=== PATIENT | female | born 1985 | race Caucasian/White ===

== ENCOUNTER 2020-07-07 17:34 | Outpatient (CLI) | payer OTHER, SELFPAY ==
[2020-07-07 18:47] LABS: SARS Covid-2 Antigen Positive (Negative)
[2020-07-09 11:17] LABS: Coronavirus Lab Test PTC Positive
== END 2020-07-07 17:35 | disposition home or self-care (01) ==
LOC: OPOB 17:35
PROVIDERS: Family Provider Family Medicine; Visit Provider Family Medicine
DX: U07.1 COVID-19 (principal)
CPT/HCPCS: 36415; 87426; 87635

== ENCOUNTER → 2020-11-29 10:03 | Outpatient (BNVA) | payer OTHER, SELFPAY | PROVIDERS: Family Provider Family Medicine; Visit Provider Obstetrics & Gynecology | DX: N93.9 Abnormal uterine and vaginal bleeding, unspecified (principal); Z12.4 Encounter for screening for malignant neoplasm of cervix | CPT/HCPCS: 76830; 84443; 84702; 85025; 88175 ==

== ENCOUNTER → 2020-12-28 08:10 | Outpatient (BNVA) | payer OTHER, SELFPAY | PROVIDERS: Family Provider Family Medicine; Visit Provider Obstetrics & Gynecology | DX: N88.9 Noninflammatory disorder of cervix uteri, unspecified (principal) | CPT/HCPCS: 76830; 81025; 88175; 88305 ==

== ENCOUNTER → 2021-01-24 13:54 | Outpatient (BNVA) | payer OTHER, SELFPAY | PROVIDERS: Family Provider Family Medicine; Visit Provider Obstetrics & Gynecology | DX: N93.9 Abnormal uterine and vaginal bleeding, unspecified (principal); Z30.9 Encounter for contraceptive management, unspecified | CPT/HCPCS: 81025 ==

== ENCOUNTER → 2022-02-27 11:10 | Outpatient (BNVA) | payer OTHER, SELFPAY | PROVIDERS: Family Provider Family Medicine; Visit Provider Nurse Practitioner Family | DX: E66.9 Obesity, unspecified (principal); R73.9 Hyperglycemia, unspecified; E11.9 Type 2 diabetes mellitus without complications; R53.83 Other fatigue; Z13.1 Encounter for screening for diabetes mellitus; E03.9 Hypothyroidism, unspecified; Z13.6 Encounter for screening for cardiovascular disorders | CPT/HCPCS: 80053; 80061; 83036; 83721; 84443; 84481; 85025 ==

== ENCOUNTER 2022-03-05 09:08 | Outpatient (CLI) | payer OTHER, SELFPAY ==
[2022-03-05 10:48] LABS: Free T4 Free Thyroxine 1.13 ng/dL (0.82-1.77)
[2022-03-05 11:45] LABS: Follicle Stimulating Hormone 4.9 mIU/mL; Luteinizing Hormone 14.9 mIU/mL (0.5-41.7)
[2022-03-06 13:22] LABS: Thyroid Peroxidase Antobodies 1 IU/mL (<9)
[2022-03-07 13:23] LABS: Cyclic Citrullinated Peptide <16 UNITS
== END 2022-03-05 09:09 | disposition home or self-care (01) ==
LOC: LAB 09:12
PROVIDERS: Family Provider Family Medicine; Visit Provider Nurse Practitioner Family
DX: R73.9 Hyperglycemia, unspecified (principal); E07.9 Disorder of thyroid, unspecified; K75.81 Nonalcoholic steatohepatitis (NASH)
CPT/HCPCS: 83001; 83002; 84146; 84439; 86200; 86376

== ENCOUNTER → 2022-03-28 09:50 | Outpatient (BNVA) | payer OTHER, SELFPAY | PROVIDERS: Family Provider Family Medicine; Visit Provider Nurse Practitioner Family | DX: E66.9 Obesity, unspecified (principal); R74.8 Abnormal levels of other serum enzymes; E07.9 Disorder of thyroid, unspecified; E11.9 Type 2 diabetes mellitus without complications | CPT/HCPCS: 80053; 84443; 84681 ==

== ENCOUNTER 2022-04-18 07:49 | Outpatient (CLI) | payer OTHER, SELFPAY ==
--- NOTE | 2022-04-18 08:00 | US_ITS ---
WS: [id number] RIGHT UPPER QUADRANT ULTRASOUND HISTORY: Elevated liver enzymes COMPARISON: None available. Liver: 19.7 cm in length. Moderately enlarged liver. Mild coarse echotexture. No mass or bile duct di latation. Portal Vein: Normal hepatopetal flow with monophasic waveform. Gallbladder: Prior cholecystectomy. CBD: 0.9 cm Pancreas: Normal size and echogenicity. Right kidney: 9.6 cm in length. Normal size and echogenicity. No hydronephrosis or mass. Aorta and IVC: Unremarkable abdominal aorta and IVC. No ascites. US/US liver [id number] IMPRESSION: 1. Prior cholecystectomy. 2. Very mild common bile duct dilatation. May be physiologic on the basis of t he cholecystectomy. If further evaluation is necessary due to elevated liver en zymes, similar follow-up MRCP.
--- NOTE | 2022-04-18 08:45 | US_ITS ---
WS: [id number] THYROID ULTRASOUND (TI-RADS CRITERIA) History: Low TSH.. Technique: Ultrasound examination of the thyroid and adjacent soft tissues is performed. FINDINGS: Right lobe: 1.0 cm x 1.0 cm x 3.4 cm. Volume: 1.8 cm3. Small heterogeneous gland. Hypoechoic nodule in the mid gland. Please see further details below. Lymph nodes: None. NODULE: 1 Size: 0.7 x 1.0 x 1.3 cm. Location: Mid Composition: Solid/almost completely solid (2) Echogenicity: Hypoechoic (2) Shape: Not taller than wide (0) Margins: Smooth (0) Echogenic foci: None (0) ACR TI-RADS total points: 4 A Left lobe: 1.5 cm x 1.4 cm x 5.4 cm. Volume: 5.4 cm3. Normal size gland. Hypoechoic nodule with increased vascularity in the mid thyroid. Please see furthe r details below. Lymph nodes: None. NODULE: 2 Size: 1.6 x 1.6 x 2.8 cm. Location: Mid Composition: Solid/almost completely solid (2) Echogenicity: Hypoechoic (2) Shape: Not taller than wide (0) Margins: Smooth (0) Echogenic foci: Macrocalcifications (1) ACR TI-RADS total points: 5 ACR TI-RADS risk category: TR1 Isthmus: 0.1 cm. US/US thyroid [id number] Impression: 1. TR4 Recommendation: Fine needle aspiration LEFT thyroid nodule. Due to its size and appearance ultrasound-guided FNA should be attempted. This is a very vascular nodule and the patient will be risk for bleeding. There is an additional nodule in the RIGHT thyroid for which follow-up is recom mended in one year.
== END 2022-04-18 07:50 | disposition home or self-care (01) ==
LOC: RAD 07:49
PROVIDERS: Family Provider Family Medicine; Visit Provider Nurse Practitioner Family
DX: K75.81 Nonalcoholic steatohepatitis (NASH) (principal); R74.8 Abnormal levels of other serum enzymes; E04.1 Nontoxic single thyroid nodule; K83.8 Other specified diseases of biliary tract; Z90.49 Acquired absence of other specified parts of digestive tract
CPT/HCPCS: 76536; 76705

== ENCOUNTER 2022-05-27 12:45 | Outpatient (CLI) | payer OTHER, SELFPAY ==
--- NOTE | 2022-05-27 13:30 | US_ITS ---
WS: [id number] ULTRASOUND THYROID FNA CLINICAL INFORMATION: Thyroid nodule highly suspicious TR5 TECHNIQUE: Ultrasound-guided FNA FINDINGS: The procedure including risks, benefits, and complications were discussed with the patient who agreed to proceed. Timeout was performed. Using sterile technique patient was prepped and draped in usual sterile fashion. After 1% lidocaine, using ultrasound guidance, a 25-gauge needle was advanc ed into the LEFT thyroid nodule. 5 passes were made with active aspiration. Pathology was present for slide preparation. No immediate complications. Patient remained in the ultrasound suite 15 minutes postprocedure with intermittent ultrasound to ens ure no hematoma. No hematoma 15 minutes postprocedure. US/US biopsy/FNA thyroid [id number] IMPRESSION: Uncomplicated ultrasound-guided thyroid FNA. Cytology is pending.
== END 2022-05-27 12:46 | disposition home or self-care (01) ==
PROVIDERS: PCP Internal Medicine; Visit Provider Nurse Practitioner Family
DX: E04.1 Nontoxic single thyroid nodule (principal); R79.89 Other specified abnormal findings of blood chemistry; E04.9 Nontoxic goiter, unspecified
CPT/HCPCS: 10005; 88108

== ENCOUNTER → 2022-06-06 15:21 | Outpatient (BNVA) | payer OTHER, SELFPAY | PROVIDERS: PCP Internal Medicine; Visit Provider Internal Medicine | DX: R79.89 Other specified abnormal findings of blood chemistry (principal); E05.90 Thyrotoxicosis, unspecified without thyrotoxic crisis or storm | CPT/HCPCS: 84439; 84443; 84445; 84481; 86376 ==

== ENCOUNTER 2022-08-27 07:55 | Outpatient (CLI) | payer OTHER, SELFPAY ==
[2022-08-27 08:36] LABS: Estmated Average Glucose 97
[2022-08-27 08:44] LABS: Alanine Aminotransferase 15 U/L (0-33); Albumin Level 4.3 g/dL (3.5-5.2); Alkaline Phosphatase 54 U/L (35-105); Anion Gap 14.3 (5-19); Aspartate Amino Transferase 13 U/L (0-32); Blood Urea Nitrogen 12 mg/dL (6-20); Calcium 9.6 mg/dL (8.5-10.5); Carbon Dioxide 24 mmol/L (22-29); Chloride 99 mmol/L (98-107); Globulin 2.9 g/dL (1.3-4.6); Glomerular Filtration Rate 113.8 mL/min (90-130); Glucose 135 mg/dL (65-115); Osmolality Calculated 278 mOsm/kg (285-295); Potassium 4.3 mmol/L (3.5-5.1); Sodium 133 mmol/L (136-145); Thyroid Stimulating Hormone 0.89 uIU/mL (0.27-4.20); Total Bilirubin 0.5 mg/dL (0.15-1.2); Total Protein 7.2 g/dL (6.6-8.7)
== END 2022-08-27 07:56 | disposition home or self-care (01) ==
PROVIDERS: Visit Provider Internal Medicine
DX: E11.9 Type 2 diabetes mellitus without complications (principal); K75.81 Nonalcoholic steatohepatitis (NASH)
CPT/HCPCS: 36415; 80053; 83036; 84443

== ENCOUNTER 2022-12-16 10:57 | Outpatient (CLI) | payer OTHER, SELFPAY ==
--- NOTE | 2022-12-16 11:06 | XR_ITS ---
WS: [id number] Cervical spine, 3 views, 12/16/2022 Clinical Data: Cervical radiculopathy Comparison: None. Findings: No compression fractures are seen. There is degenerative disc narrowing at C6-C7 with osteo phyte formation. There is no prevertebral soft tissue swelling. The odontoid is unremarkable. The sof t tissues of the neck and the lung apices are normal. XR/XR cervical spine 3V* [id number] Impression: Degenerative disc narrowing at C6-C7 with osteophytes.
== END 2022-12-16 10:58 | disposition home or self-care (01) ==
LOC: RAD 11:00
PROVIDERS: PCP Family Medicine; Visit Provider Family Medicine
DX: M54.12 Radiculopathy, cervical region (principal); M48.02 Spinal stenosis, cervical region; M25.78 Osteophyte, vertebrae; E04.2 Nontoxic multinodular goiter; R79.89 Other specified abnormal findings of blood chemistry; E11.9 Type 2 diabetes mellitus without complications
CPT/HCPCS: 72040; 80053; 80061; 83036; 84443; 85025

== ENCOUNTER 2022-12-18 17:23 | Emergency (ER) | payer OTHER, SELFPAY ==
[2022-12-18 17:47] VITALS: BP 128/65; PULSE 104; RESP 19; TEMP 36.8; O2SAT 100; BMI 25.3
--- NOTE | 2022-12-18 18:14 | XRR_ITS ---
PROCEDURE INFORMATION: Exam: XR Right Shoulder Exam date and time: 12/18/2022 7:55 PM Age: 37 years old Clinical indication: Pain; Shoulder; Right TECHNIQUE: Imaging protocol: Radiologic exam of the right shoulder. Views: 2 or more views. COMPARISON: CR XR cervical spine 3V* [id number] 12/16/2022 11:19 AM FINDINGS: Bones/joints: Normal. Soft tissues: Normal. XR/XR shoulder RT min 2V* [id number] IMPRESSION: No acute findings.
--- NOTE | 2022-12-18 19:27 | W.ED.NECK ---
HPI - Neck Pain/Injury General: Chief Complaint: Neck Pain/Injury Stated Complaint: Neck, Shoulder, Arm pain Time Seen by Provider: 12/18/22 19:23 History of Present Illness: 37-year-old female comes in today for complaints of neck pain and weakness in the right arm and hand. Patient reports symptoms for about 1 month now. Patient has used [id number] acetaminophen, ibuprofen, and naproxen with minimal relief. Patient had been seen before and had had an injection of steroids followed by Medrol Dosepak approximately 2 weeks ago. Patient was seen recently by primary care that noted some intervertebral disc disease in the C5-C7 area of the neck. It was also noted patient had some decreased strength in the right hand. Patient reports that they were supposed to be getting her into see Dr. Cm but she has yet to hear back from their office. Patient came in tonight due to uncontrolled pain in the neck that she was not able to tolerate. Associated symptoms: Denies nausea Review of Systems General: Reports: 10 or more systems reviewed and unremarkable except in HPI and below Const: Denies: fever(s) Card: Denies: chest pain Resp: Denies: dyspnea GI: Denies: nausea or vomiting Musc: Reports: neck pain Skin/Breast: Denies: rash Neuro: Reports: weakness in extremities (Right arm) PFSH ED PFSH: Medical History Infected sebaceous cyst of skin Migraine Reports having had a history of migraines on and off in the past. She takes propranolol for migraine prevention. No pertinent past medical history Denies diabetes, asthma, hypertension, seizures, DVT/PE PCP: Dr. Solis Type 2 diabetes mellitus Had GDM with her in 2015 and remained diabetic afterwards. Surgical History S/P cholecystectomy 2010- laparoscopic cholecyst[place] [facility] [place]. S/P tonsillectomy 2012- [place] [facility] [place] Family History Mother Hypertension Father Diabetes Sister Diabetes Denies family history of Colon cancer Ovarian cancer Heart disease Hyperlipidemia Breast cancer Uterine cancer Thyroid condition Stroke Social History Smoking and tobacco status: never smoked Second hand smoke exposure: No Smoking risk assessment/counseling performed?: No Alcohol intake: never Desire information about alcohol rehabilitation?: No Counseling given: No Desire information about substance/drug rehabilitation?: No Counseling given: No Current occupation: [employer] Female Reproductive History: Spontaneous abortions: No Physical Exam Const: COMMON NORMALS: alert HENMT: COMMON NORMALS: normocephalic HEAD & SCALP: normocephalic Neck/C-Spine: CERVICAL SPINE: No Cervical spine tenderness and Yes Paracervical muscle tenderness Resp: COMMON NORMALS: normal respiratory effort Cardio: COMMON NORMALS: regular rate RATE: regular rate GI: COMMON NORMALS: non-tender Extremity: COMMON NORMALS: full ROM Neuro: COMMON NORMALS: moves all extremities SENSORIUM/ORIENTATION: Yes alert Skin: COMMON NORMALS: turgor normal GENERAL SKIN EXAM: turgor normal Course Vital Signs: Vital signs: Vital Signs Temperature 98.2 F 12/18/22 17:47 Pulse Rate 104 H 12/18/22 17:47 Respiratory Rate 19 H 12/18/22 17:47 Blood Pressure 128/65 12/18/22 17:47 Pulse Oximetry 100 12/18/22 17:47 Oxygen Delivery Me thod 12/18/22 17:47 MDM - Neck Pain/Injury Medical Decision Making Patient presents today with complaints of uncontrolled neck discomfort. On exam patient has muscle tightness in bilateral trapezius. No significant cervical spinal tenderness is noted on palpation. Patient does have some upper thoracic spine tenderness. Review of the record noted a recent x-ray of the cervical spine noted some degenerative disc disease. Differential diagnosis includes but not limited to intervertebral disc disease, facet arthropathy, cervical radiculopathy, cervical strain. Believe the patient probably has cervical radiculopathy due to intervertebral disc disease. Reviewed recommendations for treatment and need for follow-up due to the decrease strength in the right hand. Patient reported understanding. Case management will be consulted for follow-up with Dr. Cm and orthopedic spine. Patient reported understanding and agreed to plan. Patient was written for diclofenac for better anti-inflammatory response, patient was given 10 tablets of hydrocodone for further pain relief. Discussed need for medication and avoidance of other medications while on similar drug classes. Patient stated understanding and agreed to plan. Discharge Plan Discharge Patient Disposition: Home Clinical Impression: Cervical radiculopathy Condition: Stable Prescriptions: New diclofenac sodium 75 mg tablet,delayed release (DR/EC) 75 mg PO BID Qty: 20 0RF hydrocodone-acetaminophen 5-325 mg tablet 1 tab PO Q6H PRN (Reason: pain (scale score 7-10)) Qty: 10 0RF No Action Mirena 20 mcg/24 hours (6 yrs) 52 mg intrauterine device 1 device intrauterine .every 5 years Qty: 1 0RF ibuprofen 800 mg tablet 800 mg PO Q8H PRN (Reason: pain) Qty: 30 0RF Rx Instructions: take with food (DME) FreeStyle Jose 14 Day Sensor Kit See Rx Instructions .Route Qty: 1 0RF Rx Instructions: As directed (DME) blood-glucose meter Kit See Rx Instructions .Route Qty: 1 0RF Rx Instructions: As directed Generic Glucometer Kit with supplies. baclofen 10 mg tablet 10 mg PO TID Qty: 60 1RF metformin 1,000 mg tablet 1,000 mg PO BID 90 Days Qty: 180 1RF propranolol 20 mg tablet 10 mg PO BID Qty: 90 0RF Rx Instructions: 10mg in the am and 20mg in the evening semaglutide 1 mg/dose (4 mg/3 mL) pen injector 1 mg SUBCUT ONCE Qty: 3 3RF Discharge Orders: Discharge ED (Routine); Ordered 12/18/22 Ordered By: Guille Pimentel Referrals: Seth Alarcon DO [Primary Care Provider] - Discharge Diet: Usual diet Patient Instructions: Cervical Radiculopathy (ED), Opioid Safety Activity Restrictions/Additional Instructions: Activity as tolerated. Do not use naproxen or ibuprofen with diclofenac. You may use acetaminophen for further pain relief. Use hydrocodone for severe pain. Drink plenty of water with medication. Follow-up with primary care as needed. plant maintenance manager will contact you if assistance for follow-up with spinal inpatient care manager rn. Coding Level of Care Code ED Service Correspondent for Yola Cruz
[2022-12-18] MEDS: HYDROcodone-acetaminophen 7.5-325 mg Tablet 1 TAB PO (20:04)
[2022-12-18] MEDS: dexamethasone 10 mg/mL INJ IM (20:06)
[2022-12-18] MEDS: ketorolac 30 mg/mL INJ IM (20:06)
--- NOTE | 2022-12-19 08:55 | DCPLANNER ---
Addendum entered by Delicia Rene 12/26/22 07:45: Patient had a follow up appointment scheduled with ortho - patient did attend appointment Original Note: storage manager had message to schedule a follow up appointment for patient with ortho. storage manager sent patients information to the front office staff at ortho. Patients information will be printed and reviewed. Clinic will call patient with appointment information.
== END 2022-12-18 20:10 | disposition home or self-care (01) ==
PROVIDERS: Emergency Provider Nurse Practitioner Family; PCP Family Medicine
DX: M54.12 Radiculopathy, cervical region (principal); Z79.84 Long term (current) use of oral hypoglycemic drugs; E11.9 Type 2 diabetes mellitus without complications
CPT/HCPCS: 73030; 96372; 99284; J1100; J1885

== ENCOUNTER 2022-12-27 10:23 | Outpatient (CLI) | payer OTHER, SELFPAY ==
--- NOTE | 2022-12-27 11:00 | MR_ITS ---
WS: [id number] MRI CERVICAL SPINE NONCONTRAST HISTORY: neck pain, cervical radiculopathy COMPARISON: None available. Technique: Multiplanar, multisequence noncontrast imaging of the cervical spine. Straightening and reversal normal cervical lordosis centered at C5-6. Mild disc space narrowing at C5 -6 and C6-7. No fractures or marrow edema. Signal within the cervical cord is normal. Visualized posterior fossa is unremarkable. Craniocervical junction, C1 and C2 relationship, odontoid process and soft tissues are normal. C2-C3: Normal. C3-C4: Normal. C4-C5: Small central disc protrusion. Bilateral facet joint arthritis. C5-C6: Moderate RIGHT foraminal disc protrusion causing significant contact and posterior displacemen t of the exiting nerve roots. There is also slight mass effect upon the RIGHT lateral thecal sac and cord. Moderate RIGHT foraminal stenosis. C6-C7: Mild annular disc bulging and osteophytic ridging. Moderate to large LEFT paracentral and fora alice disc protrusion. There is contact and deformity of the LEFT lateral thecal sac. Moderate LEFT f oraminal stenosis. Additional smaller proximal RIGHT foraminal disc osteophyte without stenosis. C7-T1: Normal. Minimal enlargement of the LEFT thyroid lobe without nodularity. MR/MR cervical spin wo con* [id number] IMPRESSION: 1. Moderate RIGHT foraminal disc protrusion at C5-6 with significant contact a nd posterior displacement of the nerve roots. There is also mild disc contact a nd displacement along the RIGHT lateral thecal sac. Moderate RIGHT foraminal st enosis. 2. Moderate to large LEFT paracentral and foraminal disc protrusion at C6-7. C ontact and displacement along the LEFT lateral thecal sac and cervical cord. Mo derate LEFT foraminal stenosis.
== END 2022-12-27 10:24 | disposition home or self-care (01) ==
PROVIDERS: PCP Family Medicine; Visit Provider Physician Assistant
DX: M54.12 Radiculopathy, cervical region (principal); M50.222 Other cervical disc displacement at C5-C6 level
CPT/HCPCS: 72050; 72141

== ENCOUNTER 2023-01-13 09:52 | Day surgery (SDC) | payer OTHER, SELFPAY ==
[2023-01-07 08:51] VITALS: BMI 25.8
--- NOTE | 2023-01-07 09:09 | ANES.PREANE2 ---
Pre-Anesthetic Assessment Height/Weight: Height 1.7 m Weight 74.843 kg Operation Date: 01/13/23 11:15 Proposed Procedures p Anterior Cervical Discectomy & Fusion ACDF w/ Anterior Interbody Fusion w/ Cage w/ Instrumentation w/ Allograft w/ Navigation,[id number],M47.22(Not Applicable) - Preet Cm, DO Familial anesthetic complications: None Social No alcohol and No tobacco Exam alert, oriented x 3, clear to auscultation bilaterally and regular rate & rhythm Airway Mallampati: Class I Dentition: full Hepatic PELAYO Metabolic Diabetes Mellitus and Hyperlipidemia Anesthetic Plan ASA status: 3 Anesthesia: General Risk of > 500 ml blood loss (7ml/kg in children): No Medications/Allergies Home Medications Medication Instructions Recorded Confirmed Last Taken Type levonorgestrel 20 mcg/24 hours (8 1 device intrauterine .every 5 01/24/21 01/07/23 Unknown Rx yrs) 52 mg intrauterine device years #1 ea (Mirena) ibuprofen 800 mg tablet 800 mg PO Q8H PRN pain #30 tabs 01/25/21 01/07/23 1 Day Ago Rx ~01/06/23 blood-glucose meter #1 ea 02/26/22 12/31/22 Unknown Rx flash glucose sensor (FreeStyle #1 ea 03/28/22 12/31/22 Unknown Rx Jose 14 Day Sensor kit) baclofen 10 mg tablet 10 mg PO TID #60 tabs 12/16/22 01/07/23 Unknown Rx metformin 1,000 mg tablet 1,000 mg PO BID 90 days #180 tabs 12/16/22 01/07/23 1 Day Ago Rx ~01/06/23 propranolol 20 mg tablet 10 mg PO BID #90 tabs 12/16/22 01/07/23 Unknown Rx semaglutide 1 mg/dose (4 mg/3 mL) 1 mg (0.75 mL) SUBCUT ONCE #3 mL 12/16/22 01/07/23 01/02/23 Rx subcutaneous pen injector gabapentin 300 mg capsule 300 mg PO BID #60 caps 12/19/22 01/07/23 1 Day Ago Rx ~01/06/23 atorvastatin 10 mg tablet 10 mg PO DAILY #90 tabs 12/23/22 01/07/23 1 Day Ago Rx ~01/06/23 hydrocodone 5 mg-acetaminophen 325 1 tab PO Q6H PRN pain (scale score 12/25/22 01/07/23 Unknown Rx mg tablet 7-10) 7 days #20 tabs Bone Growth Stimulator [id number] #1 ea 12/31/22 12/31/22 Unknown Rx Allergies Allergy/AdvReac Type Severity Reaction Status Date / Time ciprofloxacin Allergy Mild Tongue Verified 01/07/23 08:47 swelling/itching PFSH Anesthesia Medical History Infected sebaceous cyst of skin Migraine Reports having had a history of migraines on and off in the past. She takes propranolol for migraine prevention. No pertinent past medical history Denies diabetes, asthma, hypertension, seizures, DVT/PE PCP: Dr. Solis Type 2 diabetes mellitus Had GDM with her in 2015 and remained diabetic afterwards. Surgical History S/P cholecystectomy 2010- laparoscopic cholecystectomy Performed at [facility] [place] by [place] Bey. S/P tonsillectomy 2012- Performed at [facility] [place] by Dr Perla Family History Mother Hypertension Father Diabetes Sister Diabetes Denies family history of Colon cancer Ovarian cancer Heart disease Hyperlipidemia Breast cancer Uterine cancer Thyroid condition Stroke Social History Smoking and tobacco status: never smoked Second hand smoke exposure: No Smoking risk assessment/counseling performed?: No Alcohol intake: never Desire information about alcohol rehabilitation?: No Counseling given: No Desire information about substance/drug rehabilitation?: No Counseling given: No Current occupation: [employer] Female Reproductive History Spontaneous abortions: No Data Anesthesia Cardiac Studies: No Data to Display
[2023-01-13] VITALS (14 sets, daily range): BP systolic 111–151; BP diastolic 79–107; PULSE 89–112; RESP 14–18; TEMP 36.3–36.7; O2SAT 94–100
[2023-01-13 10:05] LABS: OR HCG Qualitative Urine Negative (Negative)
[2023-01-13] MEDS: sodium chloride 0.9% 1,000 ML 30 ML IV (10:14)
[2023-01-13 10:28] LABS: Glucose Point of Care 157 mg/dL (70-110)
[2023-01-13] MEDS: HYDROmorphone 1 mg/mL INJ 1 mL 0.5 MG IVP (10:45)
[2023-01-13] MEDS: scopolamine 1.5 Patch 1 PATCH TRANSDERMA (10:52)
--- NOTE | 2023-01-13 12:36 | W.PM.OPSUD ---
Surgery/Procedure H&P Update DATE OF PROCEDURE: January 13, 2023 DATE H&P PERFORMED: 12/31/22 H&P UPDATE INFORMATION: I have reviewed H&P completed within last 30 days, I have examined patient prior to procedure and No changes to prior documentation PREOP DIAGNOSIS: Cervical radiculopathy, herniated nucleus pulposus C5-6 C6-7 PLANNED PROCEDURE: Operation Date: 01/13/23 12:00 Proposed Procedures p Anterior Cervical Discectomy & Fusion ACDF w/ Anterior Interbody Fusion w/ Cage w/ Instrumentation w/ Allograft w/ Navigation,[id number],M47.22(Not Applicable) - Preet Cm, DO
[2023-01-13] MEDS: midazolam 1 mg/mL INJ 2 mL 2 MG IVP (12:39)
[2023-01-13] MEDS: ceFAZolin 2,000 MG in sodium chloride 0.9% (plus) 50 ML 100 MG IV (12:46)
--- NOTE | 2023-01-13 13:17 | SUR.OPER ---
notified of surgical start
[2023-01-13] MEDS: lidocaine-epi 1% 20 mL INJ INJECTION (13:31)
--- NOTE | 2023-01-13 14:02 | P.ANESUD_ITS ---
Pre-Anesthetic Update Pre-Anesthetic Assessment: Date of Surgery/Procedure: 01/13/23 Preop Zuri gnosis: Cervical radiculopathy, herniated nucleus pulposus C5-6 C6-7 Proposed Procedure: Operation Date: 01/13/23 12:00 Proposed Procedures p Anterior Cervical Discectomy & Fusion ACDF w/ Anterior Interbody Fusion w/ Cage w/ Instrumentation w/ Allograft w/ Navigation,[id number],M47.22(Not Applicable) - Preet Cm, DO Any changes to Pre-Anesthetic Assessment?: No Last Intake: Intake Last Liquid Date 01/12/23 Last Liquid Time 23:30 Last Solid Date 01/12/23 Last Solid Time 21:00 Vitals: Temperature 98.1 F 01/13/23 10:14 Temperature Source Temporal Artery S can 01/13/23 10:14 Pulse Rate 112 H 01/13/23 10:14 Respiratory Rate 18 01/13/23 10:45 Respiratory Effort Non-Labored 01/13/23 10:45 Respiratory Depth Normal 01/13/23 10:45 Respiratory Patter n 01/13/23 10:45 Blood Pressure 144/89 01/13/23 10:14 Blood Pressure Adina n 107 01/13/23 10:14 Pulse Oximetry 98 01/13/23 10:14 Oxygen Delivery Me thod 01/13/23 10:14 Exam: Pre-Anes Outpt Exam: alert, oriented x 3, clear to auscultation bilaterally and regular rate & rhythm Cardiac Studies: No Data to Display
--- NOTE | 2023-01-13 14:28 | XR_ITS ---
WS: [id number] Exam: XR lumbar spine 1V [id number] Date/Time of Exam: 01/13/2023 2:29 PM Reason For Exam: OR PICS Intraoperative lateral and AP images of the cervical spine are submitted for evaluation. There is ant erior fusion of the C-spine from C5 to C7 with plate and screw fixation. Disc spacers are noted at C5 -6 and C6-7. The fusion appears to be in good alignment. An ET tube is noted in the airway. XR/XR lumbar spine 1V [id number] IMPRESSION: 1. Anterior C-spine fusion from C5 to C7.
--- NOTE | 2023-01-13 14:45 | PM.OP ---
Operative Report Date of procedure: January 13, 2023 Pre-op diagnosis: Preop Diagnosis Cervical radiculopathy, herniated nucleus pulposus C5-6 C6-7 Post-op diagnosis: same Procedure done: 1. Anterior diskectomy C5/6 2. Anterior discectomy C6/7 3. Insertion of cage C5/6 4. Insertion of Cage C6/7 5. Instrumentation with anterior plate from C5-C7 6. Use of allograft Surgeon: Preet Cm Clinical Audiologist: Aron Sanchez Clinical Audiologist: The ophthalmology surgical technician, Aron Sanchez, PAC was needed for his expertise under the microscope. He was important and necessary throughout the procedure to complete in a safe and timely manner. He assisted with patient positioning prepping and draping tissue retraction suctioning of the operative field protection of the dural sac and tissue closure Estimated blood loss (mL): 20 Procedure: 1. Anterior diskectomy C5/6 2. Anterior discectomy C6/7 3. Insertion of cage C5/6 4. Insertion of Cage C6/7 5. Instrumentation with anterior plate from C5-C7 6. Use of allograft The patient was taken to the operating room, where he underwent general endotracheal anesthesia without complications. He was then positioned supine on the operating table, and all areas of impingement were well padded. The arms were carefully padded and tucked at his sides. A roll was placed between the shoulder blades.. An x-ray was done to determine the appropriate level for the skin incision. The entire neck was then sterilely prepped and draped in the usual fashion. Neuromonitoring was attached prior to prepping. A transverse skin incision was made and carried down to the platysma muscle. This was then split in line with its fibers. Blunt dissection was carried down medial to the carotid sheath and lateral to the trachea and esophagus until the anterior cervical spine was visualized. A needle was placed into a disc and an x-ray was done to determine its location. The longus colli muscles were then elevated bilaterally with the electrocautery unit. Self-retaining retractors were placed deep to the longus colli muscle. Attention was brought to the C5/6 level that was confirmed on x-ray. A caspar pin was placed into the C5 vertebrae and the C6 vertebrae. The disk space was then distracted. The microscope was then brought in. A radical anterior discectomies were performed at C5/6. This included complete removal of the anterior annulus, nucleus, and posterior annulus. The posterior longitudinal ligament was removed as were the posterior osteophytes. Foraminotomies were then accomplished bilaterally. This was done using a high speed arlin, kerrison rongeurs and curretes Once all of this was accomplished, the curved currette was used to check for any residual compression. The central canal was wide open as were the foramen. A high-speed bur was used to remove the cartilaginous endplates above and below the interspace. Bleeding cancellous bone was exposed. The disc space were measured and appropriate size cage were placed sterilely onto the field. Allograft graft was packed into the cages. The cage was then placed and there was good juxtaposition against the bleeding decorticated surfaces and good distraction of each interspace. The [place] pins were removed. Bone wax was used to prevent any bleeding from occurring at the pin sites. Attention was brought to the C6/7 level that was confirmed on x-ray. A caspar pin was placed into the C6 vertebrae and the C7 vertebrae. The disk space was then distracted. The microscope was then brought in. A radical anterior discectomies were performed at C6/7. This included complete removal of the anterior annulus, nucleus, and posterior annulus. The posterior longitudinal ligament was removed as were the posterior osteophytes. Foraminotomies were then accomplished bilaterally. This was done using a high speed arlin, kerrison rongeurs and curretes Once all of this was accomplished, the curved currette was used to check for any residual compression. The central canal was wide open as were the foramen. A high-speed bur was used to remove the cartilaginous endplates above and below the interspace. Bleeding cancellous bone was exposed. The disc space were measured and appropriate size cage were placed sterilely onto the field. Allograft graft was packed into the cages. The cage was then placed and there was good juxtaposition against the bleeding decorticated surfaces and good distraction of each interspace. The [place] pins were removed. Bone wax was used to prevent any bleeding from occurring at the pin sites. The appropriate size anterior cervical locking plate was chosen and bent into gentle lordosis. Two screws were then placed into each of the vertebral bodies at []. There was excellent purchase. A final x-ray was done confirming good position of the hardware and Cages. The locking screws were then applied, also with excellent purchase. Following a final copious irrigation, there was good hemostasis and no dural leaks. The carotid pulse was strong. The wounds were then closed in layers using 2-0 Vicryl suture for the platysma muscle, 2-0 Vicryl suture for the subcutaneous tissue, and 4-0 monocryl suture in a subcuticular skin closure. Glue was placed followed by application of a sterile dressing. The drain was hooked to bulb suction. A soft collar was applied. The patient was then carefully returned to the supine position on his hospital bed where he was reversed and extubated and taken to the recovery room having tolerated the procedure well.
[2023-01-13] MEDS: fentaNYL 50 mcg/mL INJ 2mL IVP (14:59)
--- NOTE | 2023-01-13 15:40 | ANE.PACU2 ---
Inpatient post-anesthesia follow up: Airway intact: Yes Vital signs: Temperature 97.4 F Pulse Rate 109 Respiratory Rate 16 Blood Pressure 150/89 Pulse Oximetry 94 Oxygen Delivery Me thod Room Air Oxygen Flow Rate 3 Fraction of Inspir ed Oxygen Hydration adequate: Yes Nausea and vomiting: No Pain level: 4 Mental status: Baseline
[2023-01-13] MEDS: HYDROcodone-acetaminophen 10-325 mg Tablet 1 TAB PO (15:53)
== END 2023-01-13 16:49 | disposition home or self-care (01) ==
PROVIDERS: Physician Assistant; PCP Family Medicine; Visit Provider Orthopaedic Surgery
PROC: 0RB30ZZ Excision of Cervical Vertebral Disc, Open Approach (ICD-10-PCS; CPT 22551; principal; 2023-01-13 11:50)
DX: M50.122 Cervical disc disorder at C5-C6 level with radiculopathy (principal); E11.9 Type 2 diabetes mellitus without complications; E78.5 Hyperlipidemia, unspecified; Z79.84 Long term (current) use of oral hypoglycemic drugs
CPT/HCPCS: 20930; 22551; 22552; 22845; 22853 ×2; 36416; 72020; 76000; 82962; 84703; C1713; C1763; C9359; J0131; J0330; J0690; J1170; J2250; J2704; J3010; J3490; J7030; L0172

== ENCOUNTER → 2023-01-28 10:33 | Outpatient (BNVA) | payer OTHER, SELFPAY | PROVIDERS: PCP Family Medicine; Visit Provider Physician Assistant | DX: Z98.1 Arthrodesis status (principal) | CPT/HCPCS: 72040 ==

== ENCOUNTER → 2023-02-25 11:06 | Outpatient (BNVA) | payer OTHER, SELFPAY | PROVIDERS: PCP Family Medicine; Visit Provider Physician Assistant | DX: Z98.1 Arthrodesis status (principal) | CPT/HCPCS: 72040 ==

== ENCOUNTER → 2023-04-08 08:39 | Outpatient (BNVA) | payer OTHER, SELFPAY | PROVIDERS: PCP Family Medicine; Visit Provider Physician Assistant | DX: Z98.1 Arthrodesis status (principal) | CPT/HCPCS: 72040 ==

== ENCOUNTER 2023-07-01 07:59 | Outpatient (CLI) | payer OTHER, SELFPAY ==
[2023-07-01 08:48] LABS: Basophils % 0.1 %; Eosinophils # 0.1 10^3/uL (0.0-0.8); Eosinophils % 1.9 %; Hematocrit 36.6 % (36-47); Lymphocytes # 1.3 10^3/uL (0.8-4.8); Lymphocytes % 19.5 %; Mean Corpuscular HGB Conc 32.2 g/dL (30-55); Mean Corpuscular Hemoglobin 27.3 pg (27-33); Mean Corpuscular Volume 84.5 fl (85-98); Monocytes # 0.4 10^3/uL (0.2-0.9); Monocytes % 5.4 %; Neutrophils # 5.01 10^3/uL (1.8-7.7); Nucleated Red Blood Cells % 0 %; Platelet Count 329 10^3/cmm (157-399); Red Blood Count 4.33 10^6/uL (3.85-5.65); Red Cell Distribution Width 13.5 % (12.1-15.1); White Blood Count 6.87 10^3/uL (3.29-11.43)
[2023-07-01 09:20] LABS: Estmated Average Glucose 100; Hemoglobin A1C 5.1 % (4.0-6.0)
[2023-07-01 10:35] LABS: Alanine Aminotransferase 14 U/L (0-33); Albumin Level 4.7 g/dL (3.5-5.2); Alkaline Phosphatase 92 U/L (35-105); Anion Gap 14.8 (5-19); Aspartate Amino Transferase 11 U/L (0-32); Blood Urea Nitrogen 12 mg/dL (6-20); Calcium 9.3 mg/dL (8.5-10.5); Carbon Dioxide 23 mmol/L (22-29); Chloride 102 mmol/L (98-107); Chol HDL Ratio 3.08 mg/dL (0.0-4.40); Cholesterol 111 mg/dL (0-200); Free T4 Free Thyroxine 0.99 ng/dL (0.82-1.77); Globulin 2.9 g/dL (1.3-4.6); Glomerular Filtration Rate 140.4 mL/min (90-130); Glucose 123 mg/dL (65-115); HDL Cholesterol 36 mg/dL (60-100); LDL Cholesterol Calculated 49 mg/dL (50-129); LDL HDL Ratio 1.36 RATIO (0.00-3.22); Osmolality Calculated 283 mOsm/kg (285-295); Potassium 3.8 mmol/L (3.5-5.1); Sodium 136 mmol/L (136-145); T3 Free 3.3 PG/ML (2.0-4.4); Thyroid Stimulating Hormone 0.25 uIU/mL (0.27-4.20); Total Bilirubin 1.4 mg/dL (0.15-1.2); Total Protein 7.6 g/dL (6.6-8.7); Triglycerides 128 mg/dL (0-150)
== END 2023-07-01 08:00 | disposition home or self-care (01) ==
LOC: OPOB 08:00
PROVIDERS: PCP Family Medicine; Visit Provider Family Medicine
DX: O26.899 Other specified pregnancy related conditions, unspecified trimester (principal); Z3A.00 Weeks of gestation of pregnancy not specified; E11.9 Type 2 diabetes mellitus without complications; G43.909 Migraine, unspecified, not intractable, without status migrainosus; R79.89 Other specified abnormal findings of blood chemistry; E04.2 Nontoxic multinodular goiter
CPT/HCPCS: 80053; 80061; 83036; 84439; 84443; 84481; 85025

== ENCOUNTER → 2023-07-10 08:46 | Outpatient (BNVA) | payer OTHER, SELFPAY | PROVIDERS: PCP Family Medicine; Visit Provider Physician Assistant | DX: Z98.1 Arthrodesis status (principal) | CPT/HCPCS: 72040 ==

== ENCOUNTER 2023-07-15 08:54 | Outpatient (CLI) | payer OTHER, SELFPAY ==
--- NOTE | 2023-07-15 09:00 | US_ITS ---
WS: [id number] THYROID ULTRASOUND HISTORY: Multiple thyroid nodules COMPARISON: 04/18/2022 Right lobe: 1.3 cm x 1.3 cm x 4.3 cm (w x ap x l). Volume: 3.8 cm3. Hypoechoic nodule with scattered calcifications in the mid posterior RIGHT thyroid. Nodule measures 0 .9 x 0.9 x 1.4 cm. This nodule is slightly taller than it is wide and hypoechoic. Calcifications are also concerning. There has been a slight increase in size of this mass since the prior study. There i s increased vascularity. Left lobe: 1.7 cm x 1.8 cm x 4.3 cm (w x ap x l). Volume: 6.5 cm3. Mildly enlarged thyroid. There is a large nodule in the mid to lower gland with calcification and mil d decreased echogenicity. Marked increased vascularity. Nodule measures 1.6 x 1.5 x 2.4 cm. This nodu le is undergo prior biopsy and was negative. Isthmus: 0.1 cm. IMPRESSION: 1. Slight increase in size of the RIGHT mid thyroid nodule. TI-RADS 5 nodule. Recommend fine-needle a spiration. There are several concerning features this nodule suggesting neoplasm. Ultrasound-guided F NA recommended. 2. Large nodule in the LEFT thyroid has undergone a prior biopsy which was negative as reported by miranda e patient.
== END 2023-07-15 08:55 | disposition home or self-care (01) ==
PROVIDERS: PCP Family Medicine; Visit Provider Family Medicine
DX: E04.2 Nontoxic multinodular goiter (principal); R79.89 Other specified abnormal findings of blood chemistry
CPT/HCPCS: 76536

== ENCOUNTER 2023-08-15 09:26 | Outpatient (CLI) | payer OTHER, SELFPAY ==
--- NOTE | 2023-08-15 10:45 | US_ITS ---
WS: [id number] ULTRASOUND THYROID FNA CLINICAL INFORMATION: thyroid nodule TECHNIQUE: Ultrasound-guided FNA FINDINGS: The procedure including risks, benefits, and complications were discussed with the patient who agreed to proceed. Timeout was performed. Using sterile technique patient was prepped and draped in usual sterile fashion. After 1% lidocaine, using ultrasound guidance, a 25-gauge needle was advanc ed into the RIGHT thyroid nodule. 5 passes were made with active aspiration. Pathology was present fo r slide preparation. No immediate complications. Patient remained in the ultrasound suite 15 minutes postprocedure with intermittent ultrasound to ens ure no hematoma. No hematoma 15 minutes postprocedure. IMPRESSION: 1. Uncomplicated ultrasound-guided thyroid FNA 2. Cytology is pending.
== END 2023-08-15 09:27 | disposition home or self-care (01) ==
LOC: RAD 09:26
PROVIDERS: PCP Family Medicine; Visit Provider Otolaryngology
DX: E04.1 Nontoxic single thyroid nodule (principal); R93.89 Abnormal findings on diagnostic imaging of other specified body structures
CPT/HCPCS: 10005; 88173

== ENCOUNTER → 2024-07-05 15:00 | Outpatient (BNVA) | payer OTHER, SELFPAY | PROVIDERS: PCP Family Medicine; Visit Provider Obstetrics & Gynecology | DX: Z11.3 Encounter for screening for infections with a predominantly sexual mode of transmission (principal); N93.9 Abnormal uterine and vaginal bleeding, unspecified | CPT/HCPCS: 83001; 84146; 84702; 87491; 87591 ==

== ENCOUNTER → 2024-07-20 10:21 | Outpatient (BNVA) | payer OTHER, SELFPAY | PROVIDERS: PCP Family Medicine; Visit Provider Obstetrics & Gynecology | DX: N93.9 Abnormal uterine and vaginal bleeding, unspecified (principal); D25.2 Subserosal leiomyoma of uterus; N83.202 Unspecified ovarian cyst, left side | CPT/HCPCS: 76830; 80053; 80061; 83036; 84443 ==

== ENCOUNTER 2024-09-07 08:59 | Observation (INO) | payer OTHER, SELFPAY ==
[2024-09-06 09:07] LABS: Eosinophils # 0.2 10^3/uL (0.0-0.8); Mean Platelet Volume 8.7 fL (7.4-10.4); Nucleated Red Blood Cells % 0 %; Red Cell Distribution Width 14.2 % (12.1-15.1)
[2024-09-06 09:14] LABS: Basophils % 0.4 %; Hematocrit 40.5 % (36-47); Lymphocytes # 1.2 10^3/uL (0.8-4.8); Lymphocytes % 22.8 %; Mean Corpuscular HGB Conc 33.8 g/dL (30-55); Mean Corpuscular Hemoglobin 29.9 pg (27-33); Mean Corpuscular Volume 88.4 fl (85-98); Monocytes # 0.4 10^3/uL (0.2-0.9); Neutrophils # 3.45 10^3/uL (1.8-7.7); Neutrophils % 65.4 %; Platelet Count 305 10^3/cmm (157-399); Red Blood Count 4.58 10^6/uL (3.85-5.65); White Blood Count 5.27 10^3/uL (3.29-11.43)
[2024-09-06 09:16] LABS: Bilirubin Urine Negative (Negative); Blood Urine 2+ (Negative); Glucose Urine UA Negative (Normal); Ketones Urine Negative (Negative); Leukocyte Esterase Urine Trace (Negative); Nitrate Urine Negative (Negative); Protein Urine Negative (Negative); Specific Gravity, Urine 1.022 (1.005-1.030); Urine Appearance Clear (CLEAR); Urine Color Yellow (Yellow)
--- NOTE | 2024-09-06 09:18 | P.ANESASSM_ITS ---
Pre-Anesthetic Assessment Height/Weight: Height 1.7 m Preop Diagnosis: fibroid uterus, abnormal uterine bleeding Operation Date: 09/07/24 14:40 Proposed Procedures p Total Vaginal Hysterectomy(Not Applicable) - Geraldo Escalante MD Familial anesthetic complications: none Social No alcohol and No tobacco Exam alert and oriented x 3 Airway Mallampati: Class II Dentition: full CV/HEM Arrythmia (tachy) Metabolic Diabetes Mellitus and Hyperlipidemia Anesthetic Plan ASA status: 2 Anesthesia: General Risk of > 500 ml blood loss (7ml/kg in children): No Medications/Allergies Home Medications Medication Instructions Recorded Confirmed Last Taken Type levonorgestrel 21 mcg/24 hr (up to 1 device intrauterine .every 5 01/24/21 09/06/24 09/06/24 Rx 8 years) 52 mg intrauterine device years #1 ea (Mirena) atorvastatin 10 mg tablet 10 mg PO BEDTIME 09/06/24 09/06/24 09/05/24 History escitalopram oxalate 10 mg tablet 10 mg PO BEDTIME 09/06/24 09/06/24 09/05/24 History (Lexapro) propranolol 20 mg tablet 20 mg PO BEDTIME 09/06/24 09/06/24 09/05/24 History semaglutide 1 mg/dose (4 mg/3 mL) 1 mg SUBCUT DIRECTED 09/06/24 09/06/24 08/29/24 History subcutaneous pen injector (Ozempic) Allergies Allergy/AdvReac Type Severity Reaction Status Date / Time ciprofloxacin Allergy Mild Tongue Verified 09/03/24 13:17 swelling/itching PFSH Anesthesia Medical History Infected sebaceous cyst of skin Migraine Type 2 diabetes mellitus No pertinent past medical history Denies diabetes, asthma, hypertension, seizures, DVT/PE PCP: Dr. Solis Surgical History S/P cholecystectomy 2010- laparoscopic cholecystectomy Performed at [facility] by Dr Bey. S/P tonsillectomy 2012- Performed at [facility] by Dr Perla Family History Mother Hypertension Father Diabetes Sister Diabetes Denies family history of Colon cancer Ovarian cancer Heart disease Hyperlipidemia Breast cancer Uterine cancer Thyroid disease Stroke Social History Smoking and tobacco/nicotine status: never used tobacco/nicotine Female Reproductive History Date of last menstrual period: 09/06/24 Spontaneous abortions: No Data Anesthesia 09/06/24 08:52 09/06/24 08:52 Short CBC 09/06/24 Range/Units 08:52 WBC 5.27 (3.29-11.43) 10^3/uL Hgb 13.70 (11.27-16.99) g/dL Hct 40.5 (36-47) % MCV 88.4 (85-98) fl Plt Count 305 (157-399) 10^3/cmm Neut % (Auto) 65.4 % Neut # (Auto) 3.45 (1.8-7.7) 10^3/uL Cardiac Studies: 2 No Data to Display
[2024-09-06 09:20] LABS: Add Urine Microscopic? YES; Bacteria Urine None Seen /hpf; RBC Urine 0-2 /hpf (0-2)
[2024-09-06 09:26] LABS: Alanine Aminotransferase 16 U/L (0-33); Albumin Level 4.5 g/dL (3.5-5.2); Alkaline Phosphatase 91 U/L (35-105); Anion Gap 14.9 (5-19); Aspartate Amino Transferase 15 U/L (0-32); Blood Urea Nitrogen 13 mg/dL (6-20); Carbon Dioxide 24 mmol/L (22-29); Chloride 105 mmol/L (98-107); Globulin 2.7 g/dL (1.3-4.6); Glomerular Filtration Rate 112.5 mL/min (90-130); Glucose 146 mg/dL (65-115); Osmolality Calculated 293 mOsm/kg (285-295); Potassium 3.9 mmol/L (3.5-5.1); Sodium 140 mmol/L (136-145); Total Bilirubin 1.3 mg/dL (0.15-1.2); Total Protein 7.2 g/dL (6.6-8.7)
[2024-09-06 20:39] LABS: OR HCG Qualitative Urine Negative (Negative)
[2024-09-07] VITALS (23 sets, daily range): BP systolic 110–137; BP diastolic 69–91; PULSE 74–97; RESP 12–20; TEMP 36.2–37.7; O2SAT 93–99; BMI 24.9
[2024-09-07] MEDS: scopolamine 1.5 Patch 1 PATCH TRANSDERMA (06:20)
[2024-09-07] MEDS: sodium chloride 0.9% 500 ML IV (06:22)
[2024-09-07] MEDS: ceFAZolin 2,000 mg SDV 2000 MG IVP (06:38)
[2024-09-07] MEDS: sodium chloride 0.9% 1,000 ML 30 ML IV (06:45)
[2024-09-07] MEDS: metroNIDAZOLE IV 500 MG/100 ML PREMIX 100 MG IV (06:46)
--- NOTE | 2024-09-07 06:55 | W.PM.OPSUD ---
Surgery/Procedure H&P Update DATE OF PROCEDURE: September 07, 2024 DATE H&P PERFORMED: 09/03/24 H&P UPDATE INFORMATION: I have reviewed H&P completed within last 30 days, I have examined patient prior to procedure and No changes to prior documentation PREOP DIAGNOSIS: fibroid uterus, abnormal uterine bleeding PLANNED PROCEDURE: Operation Date: 09/07/24 07:00 Proposed Procedures p Total Vaginal Hysterectomy(Not Applicable) - Geraldo Escalante MD
[2024-09-07 06:58] LABS: Glucose Point of Care 166 mg/dL (70-110)
--- NOTE | 2024-09-07 07:02 | P.ANESUD_ITS ---
Pre-Anesthetic Update Pre-Anesthetic Assessment: Date of Surgery/Procedure: 09/07/24 Preop Zuri gnosis: fibroid uterus, abnormal uterine bleeding Proposed Procedure: Operation Date: 09/07/24 07:00 Proposed Procedures p Total Vaginal Hysterectomy(Not Applicable) - Geraldo Escalante MD Any changes to Pre-Anesthetic Assessment?: No Last Intake: Intake Last Liquid Date 09/06/24 Last Liquid Time 11:59 Last Solid Date 09/06/24 Last Solid Time 18:30 Labs Last 48hrs: Short CBC 09/06/24 Range/Units 08:52 WBC 5.27 (3.29-11.43) 10^ 3/uL Hgb 13.70 (11.27-16.99) g/ dL Hct 40.5 (36-47) % MCV 88.4 (85-98) fl Plt Count 305 (157-399) 10^3/c mm Neut % (Auto) 65.4 % Neut # (Auto) 3.45 (1.8-7.7) 10^3/u L BMP 09/06/24 08:52 Sodium 140 Potassium 3.9 Chloride 105 Carbon Dioxide 24 BUN 13 Creatinine 0.6 Glucose 146 H Calcium 8.0 L Liver Function 09/06/24 Range/Units 08:52 Total Bilirubin 1.3 H (0.15-1.2) mg/dL AST 15 (0-32) U/L ALT 16 (0-33) U/L Alkaline Phosphata se 91 (35-105) U/L Albumin 4.5 (3.5-5.2) g/dL Urine 09/06/24 Range/Units 08:52 Urine Color Yellow (Yellow) Urine Appearance Clear (CLEAR) Urine pH 6.0 (5-7) Ur Specific Gravit y 1.022 (1.005-1.030) Urine Protein Negative (Negative) Urine Glucose (UA) Negative (Normal) Urine Ketones Negative (Negative) Urine Nitrate Negative (Negative) Urine Bilirubin Negative (Negative) Ur Leukocyte Cassie ase Trace A (Negative) Urine RBC 0-2 (0-2) /hpf Urine WBC 6-10 (0-5) /hpf Blood Bank 09/06/24 08:52 Blood Type O Positive Rho(D) Type Rh positive Antibody Screen Negative Vitals: Temperature 97.2 F L 09/07/24 05:58 Temperature Source Temporal Artery S can 09/07/24 05:58 Pulse Rate 85 09/07/24 05:58 Respiratory Rate 16 09/07/24 05:58 Blood Pressure 137/91 09/07/24 05:58 Blood Pressure Adina n 106 09/07/24 05:58 Pulse Oximetry 99 09/07/24 05:58 Oxygen Delivery Me thod Room Air 09/07/24 05:58 Exam: Pre-Anes Outpt Exam: alert, oriented x 3, clear to auscultation bilaterally and regular rate & rhythm Cardiac Studies: No Data to Display
[2024-09-07] MEDS: lidocaine-epi 2% PF 1:200,000 20 mL SDV XX (08:15)
--- NOTE | 2024-09-07 08:38 | P.BOP_ITS ---
Date of Procedure: 09/07/24 Surgeon: Geraldo Escalante MD Barbering Teacher(s): Procedure(s) performed: Total vaginal hysterectomy Findings of the procedure(s): Fibroid uterus Estimated blood loss: 100 Specimen(s) removed: Uterus, left and right fallopian tube Post-operative diagnosis: Status post TVH
--- NOTE | 2024-09-07 08:40 | PM.OP ---
Operative Report Date of procedure: September 07, 2024 Pre-op diagnosis: Fibroid uterus Abnormal uterine bleeding Postcoital bleeding Post-op diagnosis: same Procedure done: Total vaginal hysterectomy Specimens removed/disposition: Uterus, left and right fallopian tube Surgeon: Geraldo Escalante MD Estimated blood loss (mL): 100 IV fluids (mL): 900 Urine output (mL): 400 Complications: None Procedure: After informed consent and risks, benefits, indications and alternatives reviewed with the patient was taken to the operating room. The patient was placed in dorsal lithotomy position prepped, and draped in the usual sterile fashion. The pre-procedure timeout verifying the correct patient, procedure, site and side, could not requirements was performed and acknowledge by the OR team. A Shaikh catheter was placed. A Bookwalter vaginal retractor was placed into the vagina in usual manner visualize the cervix. Cervix was grasped with a single tooth tenaculum and circumferentially infiltrated with 2% lidocaine with epinephrine. Then cervix was circumferentially incised with bovie and the bladder was dissected off the pubovesical cervical fascia anteriorly with a sponge stick and Metzenbaum scissors. The anterior peritoneal reflection was identified and the anterior cul-de-sac was entered sharply with Metzenbaum scissors. The same procedure was performed posteriorly and a posterior colpotomy was made through the posterior cul-de-sac space without difficulty and the posterior blade of the Bookwalter vaginal retractor was advanced posteriorly into the cul-de-sac. At this time, the left and right uterosacral ligaments were isolated and ligated with 0 Vicryl. The LigaSure device was placed over the uterosacral ligaments on either side and was then used in a serial fashion up through the cardinal ligaments bilaterally cross-clamped, cut, and sealed with the LigaSure device. Finally, the uterine arteries were cross-clamped, cut, sealed and ligated with the LigaSure device. Hemostasis was assured. The broad ligaments were then serially clamped, sealed and cut with the LigaSure device on both sides. Excellent hemostasis was visualized. Both cornua were clamped, sealed and cut with the LigaSure device. Then the pedicles were then suture ligated with excellent hemostasis. The uterus was excised and submitted for pathologic evaluation. No other abnormalities were noted in the pelvic cavity. Then the right side Infundibular ligament was identified. The ureter was confirmed along the pelvic side wall and peristalsis was noted. The LigaSure device was then used to clamp, sealed and transcepted the fallopian tube and was removed. The same process was then repeated on the left side. Good hemostasis was assure on both sides. The peritoneum was then closed with 0 Vicryl suture. The vaginal cuff angles were closed with [id number] #0 Vicryl suture on both sides and transfixed with the ipsilateral cardinal and uterosacral ligaments. Bludigo was given IV. The remainder of the vaginal cuff was closed with #0 Vicryl in a running locked fashion. At this time, instruments were removed from the vagina at hemostasis assured. Then the Shaikh catheter was then noticed yielding clear blue/green urine. A vaginal packing with Premarin cream was placed and the patient was taken out of dorsal lithotomy position and awakened from the general anesthesia. The patient tolerated the procedure well and was taken to the PACU recovery room in a stable condition. Sponge, lap, needle and instruments counts were correct x3.
[2024-09-07] MEDS: fentaNYL 50 mcg/mL INJ 2mL IVP (09:16)
--- NOTE | 2024-09-07 09:40 | ANE.PACU2 ---
Inpatient post-anesthesia follow up: Airway intact: Yes Vital signs: Temperature 98.3 F Pulse Rate 86 Respiratory Rate 17 Blood Pressure 127/86 Pulse Oximetry 98 Oxygen Delivery Me thod Room Air Oxygen Flow Rate Fraction of Inspir ed Oxygen Hydration adequate: Yes Nausea and vomiting: No Pain level: 1 Mental status: Baseline
--- NOTE | 2024-09-07 09:54 | PC.NURSE ---
0947 - accepted into OB 10 by MINERVA Cooper - BP 128/79 - pulse 82 - 02 98% Temp 98.5 - no distress noted
[2024-09-07] MEDS: docusate sodium 100 mg Capsule PO ×2 (10:08→19:27)
[2024-09-07] MEDS: ketorolac 30 mg/mL INJ IVP ×3 (10:08→21:18)
[2024-09-07] MEDS: HYDROmorphone 1 mg/mL INJ 1 mL 0.4 MG IVP ×3 (11:30→19:26)
[2024-09-07] MEDS: dextrose 5%-lactated ringers 1,000 ML 125 ML IV (14:14)
[2024-09-07] MEDS: cyclobenzaprine 10 mg Tablet 5 MG PO (21:19)
[2024-09-08] MEDS: ketorolac 30 mg/mL INJ IVP (04:04)
[2024-09-08 05:00] VITALS: BP 101/58; PULSE 85; RESP 16; TEMP 36.8
[2024-09-08] MEDS: HYDROcodone-acetaminophen 5-325 mg Tablet PO (05:37)
[2024-09-08 05:42] LABS: Hematocrit 31.8 % (36-47); Mean Corpuscular Hemoglobin 30.3 pg (27-33); Mean Corpuscular Volume 89.3 fl (85-98); Mean Platelet Volume 8.9 fL (7.4-10.4); Platelet Count 238 10^3/cmm (157-399); Red Blood Count 3.56 10^6/uL (3.85-5.65); White Blood Count 9.64 10^3/uL (3.29-11.43)
[2024-09-08 07:45] VITALS: RESP 16
[2024-09-08 08:00] VITALS: BP 144/80; PULSE 98; RESP 16; TEMP 36.9
--- NOTE | 2024-09-08 09:04 | PM.OBGYDC ---
Discharge Providers AIR CONTROL ELECTRONICS OPERATOR Date of Admission: 09/07/24 08:59 Date of Discharge: 09/08/24 Attending Provider at Admission: Geraldo Escalante MD Attending Provider at Discharge: Geraldo Escalante MD Primary AIR CONTROL ELECTRONICS OPERATOR: Geraldo Escalante MD Primary Care Provider: Seth Alarcon DO Hospital Course Hospital Course Mrs. Flores 39-year-old female, with history of abnormal uterine bleeding and uterine fibroids was admitted for planned total vaginal hysterectomy. The procedure was performed without complication. Overnight observation was uneventful. She is afebrile and hemodynamically stable postoperative day 1. Tolerating diet well. Ambulating without difficulty. She was counseled regarding pelvic rest for 6 weeks (no sex, no tampons, no vaginal douches). Return to the emergency room if any fever, increased bleeding or pain.. Physical Exam Narrative: GA: Alert and oriented ?3. HEENT: WNL. Heart: Regular rate and rhythm. Lungs: Clear to auscultation bilaterally. Abdomen: Bowel sounds present, nontender.. SURVEILLANCE ANALYST: spotting bleeding. Extremities: No edema, no cyanosis, no calves pain. Urinary Catheter Management: Shaikh: Cath Placed During This Visit: yes, but has since been removed by the nurse Reason for Continuing Indwelling Catheter: Decision to DC Catheter Urinary Catheter Date of Insertion: 09/07/24 Urinary Catheter Time of Insertion: 07:29 Date Urinary Catheter Removed: 09/08/24 Time Urinary Catheter Discontinued: 05:20 History History History 1 Term 1 0 Miscarriages/Ectopic 0 Living Children 1 Discharge Data Studies Completed and Pending Pending at discharge Category Date Time Status Pathology: Surgical [PTH] Routine Pth 09/07/24 08:10 Received Laboratory Results WBC 9.64 10^3/uL (3.29-11.43) 09/08/24 05:20 RBC 3.56 10^6/uL (3.85-5.65) L 09/08/24 05:20 Hgb 10.80 g/dL (11.27-16.99) L 09/08/24 05:20 Hct 31.8 % (36-47) L 09/08/24 05:20 MCV 89.3 fl (85-98) 09/08/24 05:20 MCH 30.3 pg (27-33) 09/08/24 05:20 MCHC 34.0 g/dL (30-55) 09/08/24 05:20 RDW 14.0 % (12.1-15.1) 09/08/24 05:20 Plt Count 238 10^3/cmm (157-399) 09/08/24 05:20 MPV 8.9 fL (7.4-10.4) 09/08/24 05:20 Neut % (Auto) 65.4 % 09/06/24 08:52 Lymph % (Auto) 22.8 % 09/06/24 08:52 [place] % (Auto) 7.0 % 09/06/24 08:52 Eos % (Auto) 4.0 % 09/06/24 08:52 Baso % (Auto) 0.4 % 09/06/24 08:52 Neut # (Auto) 3.45 10^3/uL (1.8-7.7) 09/06/24 08:52 Lymph # (Auto) 1.2 10^3/uL (0.8-4.8) 09/06/24 08:52 [place] # (Auto) 0.4 10^3/uL (0.2-0.9) 09/06/24 08:52 Eos # (Auto) 0.2 10^3/uL (0.0-0.8) 09/06/24 08:52 Baso # (Auto) 0.0 10^3/uL (0.0-0.1) 09/06/24 08:52 Nucleated RBC % (auto) 0 % 09/06/24 08:52 Nucleated RBCs # 0.0 /100WBC 09/06/24 08:52 Sodium 140 mmol/L (136-145) 09/06/24 08:52 Potassium 3.9 mmol/L (3.5-5.1) 09/06/24 08:52 Chloride 105 mmol/L (98-107) 09/06/24 08:52 Carbon Dioxide 24 mmol/L (22-29) 09/06/24 08:52 Anion Gap 14.9 (5-19) 09/06/24 08:52 BUN 13 mg/dL (6-20) 09/06/24 08:52 Creatinine 0.6 mg/dL (0.5-0.9) 09/06/24 08:52 GFR Calculation 112.5 mL/min (90-130) 09/06/24 08:52 Glucose 146 mg/dL (65-115) H 09/06/24 08:52 POC Glucose 166 mg/dL (70-110) H 09/07/24 06:10 Calculated Osmolality 293 mOsm/kg (285-295) 09/06/24 08:52 Calcium 8.0 mg/dL (8.5-10.5) L 09/06/24 08:52 Total Bilirubin 1.3 mg/dL (0.15-1.2) H 09/06/24 08:52 AST 15 U/L (0-32) 09/06/24 08:52 ALT 16 U/L (0-33) 09/06/24 08:52 Alkaline Phosphatase 91 U/L (35-105) 09/06/24 08:52 Total Protein 7.2 g/dL (6.6-8.7) 09/06/24 08:52 Albumin 4.5 g/dL (3.5-5.2) 09/06/24 08:52 Globulin 2.7 g/dL (1.3-4.6) 09/06/24 08:52 Urine Color Yellow (Yellow) 09/06/24 08:52 Urine Appearance Clear (CLEAR) 09/06/24 08:52 Urine pH 6.0 (5-7) 09/06/24 08:52 Ur Specific [place] 1.022 (1.005-1.030) 09/06/24 08:52 Urine Protein Negative (Negative) 09/06/24 08:52 Urine Glucose (UA) Negative (Normal) 09/06/24 08:52 Urine Ketones Negative (Negative) 09/06/24 08:52 Urine Blood 2+ (Negative) A 09/06/24 08:52 Urine Nitrate Negative (Negative) 09/06/24 08:52 Urine Bilirubin Negative (Negative) 09/06/24 08:52 Urine Urobilinogen 1.0 mg/dL (Negative) 09/06/24 08:52 Ur Leukocyte Esterase Trace (Negative) A 09/06/24 08:52 Urine RBC 0-2 /hpf (0-2) 09/06/24 08:52 Urine WBC 6-10 /hpf (0-5) 09/06/24 08:52 Ur Squamous Epith Cells 6-10 /hpf (0-5) 09/06/24 08:52 Amorphous Sediment Not Reportable 09/06/24 08:52 Urine Bacteria None seen /hpf (NONE) 09/06/24 08:52 Hyaline Casts 0.40 /lpf 09/06/24 08:52 Urine HCG, Qual Negative (Negative) 09/06/24 08:52 Blood Type O Positive 09/06/24 08:52 Rho(D) Type Rh positive 09/06/24 08:52 Antibody Screen Negative 09/06/24 08:52 Procedures Performed Total vaginal hysterectomy Vitals Last Vital Signs Temp 98.2 F 09/08/24 05:00 Pulse 85 09/08/24 05:00 Resp 16 09/08/24 07:45 BP 101/58 09/08/24 05:00 Pulse Ox 96 09/07/24 12:41 O2 Del Method Room Air 09/07/24 12:41 Results Labs OB ([facility]): Blood Type O Positive 09/06/24 Antibody Screen Negative 09/06/24 Hct 31.8 % (36-47) L 09/08/24 Hgb 10.80 g/dL (11.27-16.99) L 09/08/24 Rho(D) Type Rh positive 09/06/24 Plt Count 238 10^3/cmm (157-399) 09/08/24 TSH 0.35 uIU/mL (0.27-4.20) 07/20/24 Free T4 0.99 ng/dL (0.82-1.77) 07/01/23 C.trachomatis RNA (TMA) Not detected (NOT DETECTED) 07/05/24 N.gonorrhoeae RNA (TMA) Not detected (NOT DETECTED) 07/05/24 T. vaginalis Amp RNA Not detected (NOT DETECTED) 07/05/24 Chlamydia/GC Comment See note 07/05/24 Hemoglobin A1c 5.5 % (4.0-6.0) 07/20/24 FSH 2.5 mIU/mL 07/05/24 Ser , Semi-Qnt 1.00 mIU/mL 07/05/24 Prolactin 18.42 ng/mL (4.8-23.3) 07/05/24 Discharge Plan Discharge Patient Disposition: Home Condition: Stable Prescriptions: New oxycodone-acetaminophen [Endocet] 5-325 mg tablet 1 tab PO Q6H PRN (Reason: pain) Qty: 20 0RF acetaminophen 325 mg capsule 325 mg PO Q4H PRN (Reason: fever or postoperative pain) Qty: 60 0RF docusate sodium [Colace] 100 mg capsule 100 mg PO BID Qty: 30 0RF ferrous sulfate [Iron (ferrous sulfate)] 325 mg (65 mg iron) tablet 325 mg PO BID Qty: 60 0RF ibuprofen 800 mg tablet 800 mg PO TID PRN (Reason: pain) Qty: 60 0RF Continued Mirena 20 mcg/24 hours (6 yrs) 52 mg intrauterine device 1 device intrauterine .every 5 years Qty: 1 0RF atorvastatin 10 mg tablet 10 mg PO BEDTIME Rx Instructions: TAKE ONE TABLET BY MOUTH DAILY propranolol 20 mg tablet 20 mg PO BEDTIME escitalopram oxalate [Lexapro] 10 mg tablet 10 mg PO BEDTIME Rx Instructions: Take 1/2 tab daily x 14 days then one tab daily. Ozempic 1 mg/dose (4 mg/3 mL) pen injector 1 mg SUBCUT DIRECTED Rx Instructions: inject 1mg SUBCUTANEOUSLY ONCE WEEKLY Discharge Orders: Discharge Order (Routine); Ordered 09/08/24 Ordered By: Geraldo Escalante Referrals: Geraldo Escalante MD [Physician] - 10/14/24 9:00 am Rosemary Hernandez APN, WHNP [Nurse Practitioner] - 09/22/24 10:00 am Discharge Diet: Diabetic Discharge Activity: Limit activity as instructed Patient Instructions: Acute Wound Care (DC), Vaginal Hysterectomy (DC), Opioid Safety, Post Anesthesia Care Activity Restrictions/Additional Instructions: 1. Please call [facility] on next working day to make your post-operative appointment in 2 weeks. 2. Please stay home until you come back to the clinic on first post-hospatilization check up. 3. Please follow instructions on your medications CAREFULLY. 4. If you have abdominal incision, do not cover it unless dressing is necessary because of drainage. OK to shower, but avoid bath. Leave steri-strips until they fall off. If they are still on one week after surgery, you may remove them. 5. If you had vaginal surgery or vaginal repair, Dr. Escalante may instruct you to take SITZ bath. 6. Yellow, blood tinged odorous vaginal discharge is usually normal after hysterectomy or vaginal surgeries. 7. No SEXUAL INTERCOURSE, tampons, or douches until you are completely released from the post-operative care. 8. Avoid constipation by eating right and maybe using some Metamucil or Milk of Magnesia. 9. All prescription refills are given during the working hours. Please do no wait till it runs out. Call the clinic at [phone] before your medication runs out. The clinic will get in touch with your doctor to prescribe medications if necessary. 10. Please remain within 40 mile radius from our hospital because emergencies do happen now and then during the post-operative period. 11. If you have stairs at home, take one step at a time slowly and minimize the number of trips. It helps to stay in one floor for the next few days. No lifting except what you can lift by one hand until you are released from the post-operative care. 12. Driving is discouraged until you are well healed. It may be 3-4 weeks before you feel strong enough to drive. You should be able to turn and look through the rear window without pain and you should be able to push the brake pedal very hard without pain before you drive. No fast rules, but SAFETY should be your primary concern. DO NOT drive if you are on sedating medications such as narcotics. 13. Call the clinic (during working hours) to make urgent appointment or go to the Emergency room, if any of the following occurs: i. Vaginal bleeding becomes heavy, more than a period. ii. Incision becomes red and sore, or drains pus. iii. Your TEMPERATURE is over 100.4F or you have chill. iv. IV site becomes red and swollen (a little ``knot?? is usually OK) v. Persistent nausea and vomiting vi. Persistent constipation or diarrhea vii. Rash or allergic reaction to medications. Discharge Attestations AIR CONTROL ELECTRONICS OPERATOR Time Spent in Discharge Care*: greater than 30 min Coding Level of Care Code Acute Code for Chg Fwd
[2024-09-08] MEDS: ibuprofen 800 mg tablet PO (09:41)
[2024-09-08] MEDS: docusate sodium 100 mg Capsule PO (09:41)
[2024-09-08 11:54] VITALS: RESP 16
[2024-09-08 12:30] VITALS: BP 128/77; PULSE 85; RESP 18; TEMP 36.8; O2SAT 100
[2024-09-08 12:40] VITALS: BP 128/77; PULSE 18; RESP 85; TEMP 36.8; O2SAT 100
== END 2024-09-08 12:40 | disposition home or self-care (01) ==
LOC: OBGYN 09:00
PROVIDERS: Admitting Provider Obstetrics & Gynecology; PCP Family Medicine; Visit Provider Obstetrics & Gynecology
PROC: (CPT 58262; principal; 2024-09-07 07:00)
DX: D25.9 Leiomyoma of uterus, unspecified (principal); E11.9 Type 2 diabetes mellitus without complications; E78.5 Hyperlipidemia, unspecified
CPT/HCPCS: 58262; 36415; 36416; 80053; 81001; 81025; 82962; 85025; 85027; 86850; 86900; 88307; G0378; J0131; J0690; J1100; J1171; J1885; J2405; J2704; J3010; J3490; J7030; J7040; J7121

== ENCOUNTER 2025-06-27 15:45 | Outpatient (CLI) | payer OTHER, SELFPAY ==
--- NOTE | 2025-06-27 15:49 | XR_ITS ---
WS: [id number] Right foot, 3 views, 06/27/2025 Clinical Data: injury right foot Comparison: None. Findings: No fractures or dislocations are seen. No bone destruction or erosion is noted. The joint spaces and soft tissues are normal. XR/XR foot RT min 3V* [id number] Impression: Negative right foot.
== END 2025-06-27 15:46 | disposition home or self-care (01) ==
LOC: RAD 15:46
PROVIDERS: PCP Family Medicine; Visit Provider Nurse Practitioner
DX: S99.921A Unspecified injury of right foot, initial encounter (principal); X58.XXXA Exposure to other specified factors, initial encounter
CPT/HCPCS: 73630

== ENCOUNTER 2025-06-30 07:46 | Outpatient (CLI) | payer SELFPAY ==
[2025-06-30 08:30] LABS: HF Add Manual Diff No
[2025-06-30 08:44] LABS: Hematocrit 36.6 % (36-47); Hemoglobin 12.40 g/dL (11.27-16.99); Mean Corpuscular HGB Conc 33.9 g/dL (30-55); Mean Corpuscular Hemoglobin 30.6 pg (27-33); Mean Corpuscular Volume 90.4 fl (85-98); Nucleated Red Blood Cells % 0 %; Platelet Count 283 10^3/cmm (157-399); Red Blood Count 4.05 10^6/uL (3.85-5.65); White Blood Count 5.82 10^3/uL (3.29-11.43)
[2025-06-30 09:12] LABS: Alanine Aminotransferase 15 U/L (0-33); Albumin Level 4.2 g/dL (3.5-5.2); Alkaline Phosphatase 91 U/L (35-105); Anion Gap 13.4 (5-19); Aspartate Amino Transferase 12 U/L (0-32); Blood Urea Nitrogen 11 mg/dL (6-20); Calcium 9.0 mg/dL (8.5-10.5); Carbon Dioxide 24 mmol/L (22-29); Chloride 106 mmol/L (98-107); Cholesterol 147 mg/dL (0-200); Globulin 3.0 g/dL (1.3-4.6); Glucose 179 mg/dL (65-115); HDL Cholesterol 33 mg/dL (60-100); Osmolality Calculated 292 mOsm/kg (285-295); Potassium 4.4 mmol/L (3.5-5.1); Sodium 139 mmol/L (136-145); Thyroid Stimulating Hormone 0.48 uIU/mL (0.27-4.20); Total Protein 7.2 g/dL (6.6-8.7); Triglycerides 174 mg/dL (0-150)
[2025-06-30 09:26] LABS: Estmated Average Glucose 114; Hemoglobin A1C 5.6 % (4.0-6.0)
== END 2025-06-30 07:47 | disposition home or self-care (01) ==
PROVIDERS: PCP Family Medicine; Visit Provider Dermatology
DX: Z01.89 Encounter for other specified special examinations (principal)

== ENCOUNTER → 2025-08-28 17:42 | Outpatient (BNVA) | payer OTHER, SELFPAY | PROVIDERS: PCP Family Medicine; Visit Provider Emergency Medicine | DX: J02.9 Acute pharyngitis, unspecified (principal) | CPT/HCPCS: 87071; 87880 ==